=== PATIENT | male | born 1975 | race African-American/Black ===

== ENCOUNTER 2016-08-23 10:01 | Emergency (ER) | payer OTHER ==
[~2016-08-23] VITALS: Ht 185.4 cm; Wt 80.0 kg
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
== END 2016-08-23 12:26 | disposition home or self-care (01) ==
LOC: NEPB 10:01
DX: S39.012A Strain of muscle, fascia and tendon of lower back, initial encounter (principal); S80.01XA Contusion of right knee, initial encounter; V49.40XA Driver injured in collision with unspecified motor vehicles in traffic accident, initial encounter
CPT/HCPCS: 99283